=== PATIENT | male | born 1965 | race Two or more races ===

== ENCOUNTER 2018-02-24 11:58 | Inpatient (IN) | payer MEDICARE, OTHER ==
[~2018-02-24] VITALS: Ht 175.3 cm; Wt 93.9 kg
--- NOTE | 2018-02-24 12:12 | NUR ---
TYRELL FROM A [facility] FOR MEDICAL CLEARANCE FOR PSYCHE ADMISSION. PATIENT IS AWAKE AND ALERT, COOPERATIVE AT THIS TIME. SKIN IS WARM TO TOUCH AND NON DIAPHORETIC, PATIENT IS AFEBRILE. VSS
[2018-02-24] MEDS ORDERED: METF10004 PO (12:14)
[2018-02-24] MEDS ORDERED: TRAZ-214 PO (12:14)
[2018-02-24] MEDS ORDERED: ATEN50TA PO (12:14)
[2018-02-24] MEDS ORDERED: AMLO5TAB2 PO (12:14)
[2018-02-24] MEDS ORDERED: CLOZ25TA4 PO (12:14)
[2018-02-24] MEDS ORDERED: OLAN10TA3 PO (12:23)
--- NOTE | 2018-02-24 12:28 | NUR ---
urine sent to lab
[2018-02-24 12:37] LABS: BASOPHILS % (AUTO) 0.8 % (0.0-2.0); EOSINOPHILS % (AUTO) 1.2 % (0.0-6.0); HEMATOCRIT 42 % (39-51); HEMOGLOBIN 13.8 g/dL (13.5-17.5); LYMPHOCYTES # (AUTO) 1.5 /CMM (0.8-4.8); LYMPHOCYTES % (AUTO) 33.8 % (20.0-44.0); MEAN CORPUSCULAR HEMOGLOBIN 29 PG (26.0-33.0); MEAN CORPUSCULAR HGB CONC 33 g/dl (31.0-36.0); MEAN CORPUSCULAR VOLUME 88 fL (80-96); MONOCYTES # (AUTO) 0.3 /CMM (0.1-1.30); MONOCYTES % (AUTO) 7.6 % (2.0-12.0); NEUTROPHILS # (AUTO) 2.6 /CMM (1.8-8.9); NEUTROPHILS % (AUTO) 56.6 % (43.0-81.0); PLATELET COUNT (AUTO) 233 /CMM (150-450); RDW COEFFICIENT OF VARIATION 13.1 (11.5-15.0); RED BLOOD CELL COUNT(AUTO) 4.75 MIL/uL (4.5-6.0); WHITE BLOOD COUNT (AUTO) 4.5 K/uL (4.3-11.0)
[2018-02-24 12:40] LABS: APPEARANCE,URINE Clear (CLEAR); BILIRUBIN,URINE Negative (NEGATIVE); BLOOD, URINE Negative Ery/uL (NEGATIVE); COLOR,URINE Light yellow (YELLOW); KETONES,URINE Negative (NEGATIVE); LEUKOCYTE ESTERASE ,URINE Negative (NEGATIVE); NITRITE, URINE Negative (NEGATIVE); PH,URINE 5.5 (5.0-8.0); PROTEIN,URINE Negative (NEGATIVE); UGLUCOSE 500 MG/DL mg/dL (NEGATIVE); UROBILINOGEN,URINE 0.2 EU/dL (0.2)
[2018-02-24 12:49] LABS: CALCIUM, SERUM 9.2 mg/dL (8.5-10.1); CARBON DIOXIDE 31 mmol/L (21-32); CHLORIDE 105 mmol/L (98-107); GLUCOSE 311 mg/dL (74-106); POTASSIUM 3.9 mmol/L (3.5-5.1); SODIUM SERUM 137 mmol/L (136-145); UREA NITROGEN, BLOOD 19 mg/dL (7-18)
[2018-02-24 12:55] LABS: ALANINE AMINOTRANSFERASE 80 U/L (12-78); ALKALINE PHOSPHATASE 74 U/L (46-116); ASPARTATE AMINOTRANSFERASE 40 U/L (15-37); BILIRUBIN,DIRECT 0.1 mg/dL (0.0-0.2); BILIRUBIN,TOTAL 0.3 mg/dL (0.2-1.0); TOTAL PROTEIN, SERUM 6.3 g/dL (6.4-8.2)
[2018-02-24 12:56] LABS: ALCOHOL, BLOOD < 3 mg/dL (0-0)
--- NOTE | 2018-02-24 13:01 | NUR ---
Trey acuña in [facility] - 02/24/18 at 1302 by ANNEL ATTEMPTED TO REACH DR BURRIS OR DR JENSEN FOR OPHTHALMOLOGY CONSULT, HOWEVER, NEITHER PHYSICIAN WAS AVAILABLE.
--- NOTE | 2018-02-24 13:28 | NUR ---
CALLED [facility] FOR PANEL CALL AND DR TSE WAS PAGED
--- NOTE | 2018-02-24 13:39 | NUR ---
PT IS ASSIGNED TO [facility] BED#: 211-A, DX: SUICIDAL IDEATION AND BIPOLAR DISORDER, AND ACCEPTING PSYCHIATRIST: DR CHAUHAN
[2018-02-24] MEDS ORDERED: INSULIN REGULAR, HUMAN 100 UNIT/ML 10 ML VIAL ONE (13:44)
[2018-02-24] MEDS ORDERED: INSULIN REGULAR, HUMAN 100 UNIT/ML 10 ML VIAL SQ ONE (14:00)
--- NOTE | 2018-02-24 14:12 | NUR ---
REPORT GIVEN TO LUISA FROM [facility] FOR AMELIA
--- NOTE | 2018-02-24 14:13 | NUR ---
PATIENT TRANSPORTED TO [facility]. VSS
[2018-02-24 14:30] VITALS: BP 133/81
--- NOTE | 2018-02-24 14:35 | NUR ---
ADMISSION NOTES PATIENT ADMITTED FROM ER 52 Y/OLD MALE IN 5150 HOLD ON DX OF GRAVELY DISABLE. FACE TO FACE ASSESSMENT DONE PATIENT A/O X2/3, ANXIOUS, IRRITABLE EASILY, DISORGANIZED THOUGHTS. SKIN ASSESSMENT DONE , PICTURE TAKEN, PATIENT HAS EDEMA LOWER BILATERAL FOOTS, BLISTER LOWER LIPS, AND LEFT FOOT. WOUND CONSULT TRIGGERED. PATIENT ENCOURAGED TO EXPRESS FEELINGS AND CONCERNS. PATIENT DENIED SI/HI AT THIS TIME. ASSIST TAKING SHOWER, V/S TAKEN BP -133/81, P-73, R-20, O2-97 ROOM AIR, T-98.7. PATIENT SIGN PAPERWORK. BELONGING AND CONTRABAND CHECKED. PATIENT AMBULATORY SELF CARE. DR RIZO, AND DR ZIMMERMAN AWARE OF NEW PATIENT AND MEDICATION.
[2018-02-24] MEDS ORDERED: LORAZEPAM 0.5 MG TABLET PO PRN (15:30)
[2018-02-24] MEDS ORDERED: MAG HYDROX/AL HYDROX/SIMETH 30 ML UDC PO PRN (15:30)
[2018-02-24] MEDS ORDERED: MAGNESIUM HYDROXIDE 30 ML UDC PO PRN (15:30)
[2018-02-24] MEDS ORDERED: TEMAZEPAM 7.5 MG CAPSULE PO PRN (15:30)
[2018-02-24 16:00] VITALS: BP 133/81
[2018-02-24] MEDS ORDERED: DEXTROSE 50%-WATER 50 ML DISP.SYRIN IV PRN (16:00)
[2018-02-24] MEDS: BLOOD SUGAR DIAGNOSTIC 1 EACH STRIP IN SCH ×2 (17:16→20:08)
[2018-02-24] MEDS: METFORMIN 500 MG TABLET PO SCH (17:17)
[2018-02-24] MEDS: INSULIN REGULAR, HUMAN 100 UNIT/ML 3 ML VIAL SQ PRN ×2 (17:20→20:09)
--- NOTE | 2018-02-24 18:21 | NUR ---
DR. CHAUHAN MADE AWARE OF THE ADMISSION AND GAVE ORDERS.
[2018-02-24 20:00] VITALS: BP 150/69
[2018-02-24] MEDS ORDERED: TRAZODONE 50 MG TABLET PO PRN (22:00)
[2018-02-24] MEDS: TEMAZEPAM 15 MG CAPSULE PO PRN (22:04)
[2018-02-25] MEDS: BLOOD SUGAR DIAGNOSTIC 1 EACH STRIP IN SCH ×3 (01:54→09:22)
[2018-02-25] MEDS: INSULIN REGULAR, HUMAN 100 UNIT/ML 3 ML VIAL SQ PRN ×5 (01:56→16:39)
--- NOTE | 2018-02-25 07:50 | NUR ---
rn notes received pt asleep in bed nad; no aggressive behavior noted at this time. safety ensured. will monitor.
[2018-02-25 08:00] VITALS: BP 119/78
[2018-02-25] MEDS: ATENOLOL 50 MG TABLET PO SCH (08:43)
[2018-02-25] MEDS: METFORMIN 500 MG TABLET PO SCH ×2 (08:43→16:37)
[2018-02-25] MEDS: AMLODIPINE BESYLATE 5 MG TABLET PO SCH (08:44)
--- NOTE | 2018-02-25 09:37 | NUR ---
DR. BHARDWAJ ORDERED TO CHANGED THE ACCU CHECK TO AC AND HS WITH MODERATE SLIDING SCALE.
[2018-02-25] MEDS ORDERED: DEXTROSE 50%-WATER 50 ML DISP.SYRIN IV PRN (10:00)
[2018-02-25] MEDS: LORAZEPAM 1 MG TABLET PO PRN (11:41)
[2018-02-25] MEDS: ACETAMINOPHEN 325 MG TABLET PO PRN (11:52)
[2018-02-25] MEDS: BLOOD SUGAR DIAGNOSTIC 1 EACH STRIP VI SCH ×3 (11:55→21:06)
[2018-02-25 16:00] VITALS: BP 137/87
[2018-02-25 16:00] LABS: ALBUMIN 3.4 g/dL (3.4-5.0); BILIRUBIN,TOTAL 0.3 mg/dL (0.2-1.0); CALCIUM, SERUM 9.5 mg/dL (8.5-10.1); CREATININE 1.1 mg/dL (0.6-1.3); POTASSIUM 4.3 mmol/L (3.5-5.1); TOTAL PROTEIN, SERUM 7.2 g/dL (6.4-8.2)
[2018-02-25 16:05] LABS: THYROID STIMULATING HORMONE 0.982 uIU/mL (0.358-3.74)
[2018-02-25 20:00] VITALS: BP 148/72
[2018-02-25] MEDS: *INSULIN REGULAR(HUMULIN R)HUM 100 UNIT/ML VIAL SQ PRN (21:07)
[2018-02-25] MEDS: TEMAZEPAM 15 MG CAPSULE PO PRN (22:17)
[2018-02-26] MEDS: ACETAMINOPHEN 325 MG TABLET PO PRN ×2 (03:40→21:34)
[2018-02-26] MEDS: INSULIN REGULAR, HUMAN 100 UNIT/ML 3 ML VIAL SQ PRN ×2 (07:52→16:45)
[2018-02-26 08:00] VITALS: BP 147/84
[2018-02-26] MEDS: BLOOD SUGAR DIAGNOSTIC 1 EACH STRIP VI SCH ×4 (08:16→21:28)
[2018-02-26] MEDS: QUETIAPINE FUMARATE 25 MG TABLET PO SCH ×2 (09:00→17:00)
[2018-02-26] MEDS: ATENOLOL 50 MG TABLET PO SCH ×4 (09:00→11:06)
[2018-02-26] MEDS: AMLODIPINE BESYLATE 5 MG TABLET PO SCH ×5 (09:00→11:08)
[2018-02-26] MEDS: METFORMIN 500 MG TABLET PO SCH ×2 (09:25→17:00)
[2018-02-26] MEDS: LITHIUM CARBONATE (300 MG CAP) 300 MG CAPSULE PO SCH ×3 (09:26→17:30)
--- NOTE | 2018-02-26 10:17 | NUR ---
PT REFUSING ALL MEDICATIONS EVEN THOUGH PT STATED THAT HE WANTED TO TAKE MEDICATIONS WITH FOOD SANDWICH PROVIDED AND CONTINUES TO REFUSE MEDICATIONS CHARGE NURSE AWARE.
--- NOTE | 2018-02-26 10:20 | NUR ---
GPS/RN DR CHAUHAN CALLED FOR THE ORDERS DUE TO PT BEING AGITATED, FLAILING ARMS SCREAMING AND THREATENING NURSING STUFF. NEW ORDERS RECEIVED AND CARRIED OUT
[2018-02-26] MEDS ORDERED: HALOPERIDOL LACTATE INJ 5 MG/ML VIAL IM ONE (10:30)
[2018-02-26] MEDS ORDERED: LORAZEPAM INJ 2 MG/ML VIAL IM ONE (10:30)
[2018-02-26] MEDS ORDERED: diphenhydrAMINE HCL 50 MG/ML VIAL IM ONE (10:30)
[2018-02-26] MEDS: *INSULIN REGULAR(HUMULIN R)HUM 100 UNIT/ML VIAL SQ PRN ×2 (13:08→21:27)
[2018-02-26] MEDS ORDERED: INSULIN GLARGINE, 100 UNIT/ML CARTRIDGE SQ ONE ×2 (15:00→20:00)
--- NOTE | 2018-02-26 16:15 | NUR ---
CALLED EP[employer] EXCHANGE FOR MD ZIMMERMAN FOR BLOOD SUGAR 106 AND CLARIFICATION OF ONE TIME USE OF LANTUS INSULIN Addendum: 02/26/18 at 1619 by JAIRO GIL RN BLOOD SUGAR 109
--- NOTE | 2018-02-26 17:11 | NUR ---
SPOKE WITH MD ZIMMERMAN NOTIFYING OF 109 BLOOD SUGAR ORDER TO HOLD LANTUS AND GIVE AT 2000
--- NOTE | 2018-02-26 19:30 | NUR ---
RN NOTES RECEIVED PATIENT IN BED ASLEEP, EASILY AROUSABLE. AO X 3, ABLE TO MAKE NEEDS KNOWN. NO ACUTE DISTRESS NOTED. NO SYMPTOMS OF HYPER/HYPOGLYCEMIA. DENIES ANY PAIN AT THIS TIME. SAFETY REMINDERS GIVEN. ON LOW BED WITH BILATERAL UPPER SIDE RAILS UP. CALL TOMLIN WITHIN EASY REACH. WILL CONTINUE TO MONITOR.
[2018-02-26 19:54] VITALS: BP 140/73
[2018-02-26 20:00] VITALS: BP 140/73
--- NOTE | 2018-02-26 20:00 | NUR ---
RN NOTES PATIENT SLEEPING; REFUSED ACCUCHECK AND LANTUS AT THIS TIME. WILL TRY IN AN HOUR.
[2018-02-26] MEDS: TEMAZEPAM 15 MG CAPSULE PO PRN (21:26)
--- NOTE | 2018-02-26 21:35 | NUR ---
TYLENOL GIVEN FOR C/O MILD HEADACHE
--- NOTE | 2018-02-27 06:00 | NUR ---
PATIENT ASLEEP, EASILY AROUSABLE. RESPIRATIONS EVEN. NO SIGNS OF PAIN NOTED. DUE MEDS GIVEN WITH NO ASE NOTED. NEEDS ATTENDED. SAFETY PRECAUTIONS AND COMFORT MEASURES IN PLACE. WILL GIVE REPORT TO DAY SHIFT FOR CONTINUITY OF CARE.
[2018-02-27 08:00] VITALS: BP 138/85
--- NOTE | 2018-02-27 08:00 | NUR ---
GPS/RN BS 313, 12 UNITS REGULAR INSULIN ADMINISTERED.
[2018-02-27] MEDS: BLOOD SUGAR DIAGNOSTIC 1 EACH STRIP VI SCH ×4 (08:36→21:49)
[2018-02-27] MEDS: LITHIUM CARBONATE (300 MG CAP) 300 MG CAPSULE PO SCH ×3 (08:37→17:09)
[2018-02-27] MEDS: QUETIAPINE FUMARATE 25 MG TABLET PO SCH ×2 (08:37→17:09)
[2018-02-27] MEDS: METFORMIN 500 MG TABLET PO SCH ×2 (08:37→17:09)
[2018-02-27] MEDS: AMLODIPINE BESYLATE 5 MG TABLET PO SCH (08:38)
[2018-02-27] MEDS: ATENOLOL 50 MG TABLET PO SCH (08:38)
[2018-02-27] MEDS: INSULIN REGULAR, HUMAN 100 UNIT/ML 3 ML VIAL SQ PRN ×3 (08:41→17:26)
--- NOTE | 2018-02-27 11:03 | NUR ---
SW called [facility] ([phone] ext [phone]) and left a voicemail stating that the SW is aware that the pts last covered day was 02/26 and that she is trying to contact the appropriate person to leave a clinical review.
--- NOTE | 2018-02-27 11:03 | NUR ---
Initial Discharge Plan: Pt is currently homeless and stated that he would like to be discharged to hotels because he has "more than enough money" to take care of himself. SW will work with the pt and the MD regarding appropriate discharge planning. SW will form a safe and proper discharge.
--- NOTE | 2018-02-27 11:04 | NUR ---
WOUND CARE CONSULT: PT PRESENTS AMBULATORY AND CONTINENT WITH LEFT PLANTAR FOOT OPEN BLISTER, NO DRAINAGE, PRESENT ON ADMISSION. BILATERAL PLANTAR FEET HAVE DARK DISCOLORATION. PT STATES HAS BEEN WALKING ON HOT SAND. RECOMMEND DPM CONSULT. WILL SEE PRN. BARRETT IN AGREEMENT WITH PLAN OF CARE. Addendum: 02/27/18 at 1105 by NIHARIKA AGUIRRE WNDNU Amended: Links added.
[2018-02-27] MEDS: LORAZEPAM 1 MG TABLET PO PRN (11:14)
--- NOTE | 2018-02-27 11:14 | NUR ---
GPS/RN PATIENT IS ANXIOUS, AGITATED AND SEXUALLY INAPPROPRIATE, DISROBING IN UNIT, NOT ABLE TO REDIRECT, ADMINISTERED ATIVAN 1 MG, WILL CONTINUE TO MONITOR.
--- NOTE | 2018-02-27 11:45 | NUR ---
CHEVY called Shama Fulton ([phone] ext [phone]) from [facility] and left a clinical review for the pt on her voicemail.
--- NOTE | 2018-02-27 12:30 | NUR ---
GPS/RN BS 270, 9 UNITS REGULAR INSULIN ADMINISTERED.
--- NOTE | 2018-02-27 14:01 | NUR ---
CHEVY spoke to the pt's brother, Carlos Moore ([phone]), and stated that the pt may be discharged today due to his insurance and informed him of the plan. The pt's brother was not pleased and stated that he would be willing to take the pt in if agrees to the placement.
--- NOTE | 2018-02-27 14:06 | NUR ---
CHEVY called Shama Fulton ([phone] ext [phone]) from [facility] and asked for an update on the clinical review that was left for the pt on her voicemail.
[2018-02-27 15:59] VITALS: BP 131/73
--- NOTE | 2018-02-27 16:18 | NUR ---
Discharge Note: Pt was discharged to [address] [place] [address] located [place] [address] [place] [address]; . Pt was transported via taxi for $11 around 7pm. Pts brother, Carlos Moore ([phone]), is aware of this placement. Upon discharge, the pt appeared to be in a euthymic mood with a calm affect. The pt stated that he was excited to be leaving because he did not enjoy his stay at the hospital. Pt stated that he does not have any suicidal or homicidal ideation as well as any visual or auditory hallucinations. Pt was referred to be under the care of psychiatrist, Dr. Durga H[place], [place] [address] [place] [address]; and was referred to corn shucker, Dr. Booker Rodriguez, located at [address] [facility] [address], [place] [address]; .
--- NOTE | 2018-02-27 16:46 | NUR ---
Pt was not discharged today and will be leaving tomorrow to a homeless [facility]ci.
--- NOTE | 2018-02-27 18:28 | NUR ---
GPS/RN BS 276, 9 UNITS REGULAR INSULIN ADMINISTERED.
[2018-02-27 20:55] VITALS: BP 128/67
[2018-02-27] MEDS: TEMAZEPAM 15 MG CAPSULE PO PRN (21:50)
[2018-02-27] MEDS: *INSULIN REGULAR(HUMULIN R)HUM 100 UNIT/ML VIAL SQ PRN (21:52)
[2018-02-28] MEDS: ACETAMINOPHEN 325 MG TABLET PO PRN ×2 (06:13→09:08)
[2018-02-28 07:13] LABS: BASOPHILS % (AUTO) 0.8 % (0.0-2.0); EOSINOPHILS % (AUTO) 1.7 % (0.0-6.0); HEMATOCRIT 43 % (39-51); HEMOGLOBIN 13.9 g/dL (13.5-17.5); LYMPHOCYTES % (AUTO) 40.5 % (20.0-44.0); MEAN CORPUSCULAR HEMOGLOBIN 30 PG (26.0-33.0); MEAN CORPUSCULAR HGB CONC 33 g/dl (31.0-36.0); MEAN CORPUSCULAR VOLUME 91 fL (80-96); MONOCYTES # (AUTO) 0.5 /CMM (0.1-1.30); MONOCYTES % (AUTO) 10.9 % (2.0-12.0); NEUTROPHILS # (AUTO) 2.3 /CMM (1.8-8.9); NEUTROPHILS % (AUTO) 46.1 % (43.0-81.0); PLATELET COUNT (AUTO) 246 /CMM (150-450); RDW COEFFICIENT OF VARIATION 13.8 (11.5-15.0); RED BLOOD CELL COUNT(AUTO) 4.68 MIL/uL (4.5-6.0)
[2018-02-28 07:34] LABS: CALCIUM, SERUM 9.2 mg/dL (8.5-10.1); CREATININE 1.1 mg/dL (0.6-1.3); MAGNESIUM 1.6 mg/dL (1.8-2.4); PHOSPHORUS 3.4 mg/dL (2.5-4.9); POTASSIUM 4.3 mmol/L (3.5-5.1)
[2018-02-28 08:00] VITALS: BP 123/79
[2018-02-28] MEDS: ATENOLOL 50 MG TABLET PO SCH (08:27)
[2018-02-28] MEDS: LITHIUM CARBONATE (300 MG CAP) 300 MG CAPSULE PO SCH (08:27)
[2018-02-28] MEDS: METFORMIN 500 MG TABLET PO SCH (08:27)
[2018-02-28] MEDS: QUETIAPINE FUMARATE 25 MG TABLET PO SCH (08:27)
[2018-02-28 08:28] VITALS: BP 123/79
[2018-02-28] MEDS: AMLODIPINE BESYLATE 5 MG TABLET PO SCH (08:28)
[2018-02-28] MEDS: INSULIN REGULAR, HUMAN 100 UNIT/ML 3 ML VIAL SQ PRN (08:32)
[2018-02-28] MEDS: BLOOD SUGAR DIAGNOSTIC 1 EACH STRIP VI SCH (09:08)
[2018-02-28] MEDS ORDERED: DEXTROSE 50%-WATER 50 ML DISP.SYRIN IV PRN (09:30)
[2018-02-28] MEDS ORDERED: *INSULIN REGULAR(HUMULIN R)HUM 100 UNIT/ML VIAL SQ PRN (09:30)
[2018-02-28] MEDS ORDERED: INSULIN REGULAR, HUMAN 100 UNIT/ML 3 ML VIAL SQ PRN (09:30)
[2018-02-28] MEDS ORDERED: MAGNESIUM OXIDE 400 MG TABLET PO ONE (10:00)
--- NOTE | 2018-02-28 10:50 | NUR ---
GPS/RN PATIENT CLEARED FOR DISCHARGE TO [facility] BY DR DONALD AND SHIRT TRIMMER [employer]LE[employer]. MEDICATIONS RECONCILED AND PRESCRIPTIONS INCLUDED IN EXIT CARE PACKET. EXIT CARE, MEDICATIONS AND AFTER CARE PLAN EXPLAINED TO PATIENT, VERBALIZED UNDERSTANDING.PATIENT STATED THAT HE DID NOT HAVE A PREFERRED PHARMACY. INSTRUCTED TO FOLLOW UP WITH [facility] [employer] INDUSTRIAL ENGINEER AND PSYCHIATRIST WITHIN 7 DAYS. BELONGINGS AND VALUABLES RETURNED, PATIENT DENIES SI/HI/AVH, PSYCHIATRIC TREATMENT PLANS MET. PATIENT REFUSED D/C PHOTOS. LEFT UNIT, CALM, COOPERATIVE, NO DISTRESS WITH TOP INSTALLER AT SIDE.
--- NOTE | 2018-02-28 10:54 | NUR ---
SW spoke to the pt's brother, Carlos Moore ([phone]), and stated that the pt is going to a homeless intermediate today and that he was provided with the appropriate resources.
--- NOTE | 2018-02-28 10:55 | NUR ---
Shama Fulton ([phone] ext [phone]) from [facility] called the SW and informed her that she authorized the pt for inpatient stay yesterday so that he was covered. She then asked the SW to call back later and leave a discharge clinical on her voicemail.
--- NOTE | 2018-02-28 10:58 | NUR ---
Discharge Note: Pt was discharged to [facility] located on [address] , [place] [address]; . Pt was transported via bus and was provided with the appropriate funds to arrive at his destination which was $4 and was also given the bus instructions. Pt discharged around 10:45 AM. Pts brother, Carlos Moore ([phone]), is aware of this placement. Upon discharge, the pt appeared to be in a dysphoric mood with an irritated affect. The pt stated that he was excited to be leaving because he did not enjoy his stay at the hospital but also stated that he did not want to leave because he does not know anyone in [place]. Pt stated that he does not have any suicidal or homicidal ideation as well as any visual or auditory hallucinations. Pt was given two referrals for smoking cessation that are provided below. Pt was referred to be under the care of psychiatrist, Dr. Durga Haskins, [place] at [address] [place] [address]; and was referred to sld educational aide, Dr. Booker Rodriguez, located at [address] [facility] [address] [facility] [address], [place] [address]; . Addendum: 02/28/18 at 1150 by ALIA REECE CHEVY provided the pt with homeless residential referrals as well as food bank referrals that are listed below. Homeless Skilled Nursing Referrals [facility] [address] [place] [address] [facility] [address] [place], [place] [id number] [employer] F[employer] Ramez Shah [address] [place], [place] [id number] [place] [id number] [place] [address]
[2018-02-28] MEDS ORDERED: BLOOD SUGAR DIAGNOSTIC 1 EACH STRIP IN SCH (12:00)
== END 2018-02-28 10:50 | disposition home or self-care (01) | DRG 885 ==
LOC: ER 11:59 → GPS 14:19
PROVIDERS: ADMIT Psychiatry & Neurology Psychiatry; ATTEND Psychiatry & Neurology Psychiatry
DX: F31.2 Bipolar disorder, current episode manic severe with psychotic features (principal); N17.9 Acute kidney failure, unspecified; E11.65 Type 2 diabetes mellitus with hyperglycemia; E44.1 Mild protein-calorie malnutrition; R45.851 Suicidal ideations; E78.5 Hyperlipidemia, unspecified; Z88.8 Allergy status to other drugs, medicaments and biological substances; Z79.84 Long term (current) use of oral hypoglycemic drugs; Z79.899 Other long term (current) drug therapy; I10 Essential (primary) hypertension; G47.9 Sleep disorder, unspecified; E66.9 Obesity, unspecified; Z68.30 Body mass index [BMI] 30.0-30.9, adult; Z73.6 Limitation of activities due to disability
CPT/HCPCS: 36415; 80048-TC; 80053-TC; 80061-TC; 80076-TC; 80305; 81000-TC; 82962-TC; 83735-TC; 84100-TC; 84443-TC; 85025-TC; 87081-TC; G0480; J1200; J1630; J1815; J2060